=== PATIENT | female | born 1965 | race Caucasian/White ===

== ENCOUNTER 2018-12-17 09:19 | Emergency (ER) | payer OTHER, SELFPAY ==
[2018-12-17 10:45] LABS: Urine Blood TRACE (NEG); Urine Glucose NEGATIVE (NEG); Urine Protein NEGATIVE (NEG)
[2018-12-17 11:15] LABS: Absolute Lymphocytes (CBC) 1.7 K/uL (0.7-4.9); Absolute Monocytes 0.5 K/uL (0.1-1.3); Absolute Neutrophil 3.2 K/uL (1.8-8.0); Basophils % 0.8 % (0-1.3); Eosinophils % 0.6 % (0-4.4); Hematocrit 38.3 % (36.0-45.0); Lymphocytes % 31.1 % (15.3-44.8); Monocytes % 9.6 % (3.3-12.3); RBC Red Blood Cell Count 4.02 M/uL (3.86-4.86)
[2018-12-17 11:37] LABS: Albumin 4.2 g/dL (3.4-5.0); Bilirubin Direct 0.1 mg/dL (0-0.2); Bilirubin Total 0.4 mg/dL (0.2-1.0); Potassium 4.4 mmol/L (3.5-5.1); Protein, Total 8.5 g/dL (6.4-8.2)
[2018-12-17 11:39] LABS: Thyroid Stimulating Hormone 32.1 uIU/mL (0.360-3.740)
--- NOTE | 2018-12-17 11:55 | EDPHYS ---
Physician Documentation [facility] Name: Marilyn Last Age: 53 yrs Sex: Female : 1965 Arrival Date: 12/17/2018 Time: 09:24 Bed 23 Private MD: ED Physician Tom Rothman HPI: 12/17 11:56 This 53 yrs old Female presents to ER via Ambulatory with complaints of kb Abdominal Pain. 11:59 The patient or guardian reports weight gain, that was potentially precipitated by out kb of medication. Onset: The symptoms/episode began/occurred 3 week(s) ago. Associated signs and symptoms: Pertinent positives: weight gain, abd bloating. Current symptoms: In the emergency department the patient's symptoms are unchanged from the initial presentation. The patient has not experienced similar symptoms in the past. The patient has not recently seen a physician. Pt reports she is from [place] and ran out of her synthroid 3 weeks ago. States she has gained weight since and had a lot of acid reflux since then. Reports abd pain after eating for the past 3 months. . Historical: - Allergies: 09:31 PENICILLINS; ss - PMHx: 09:31 Lupus; ss 09:31 Thyroid problem; ss - Immunization history:: Adult Immunizations up to date. - Social history:: Smoking status: Patient uses tobacco products, smokes one-half pack cigarettes per day. - Ebola Screening: : Patient denies exposure to infectious person Patient denies travel to an Ebola-affected area in the 21 days before illness onset. ROS: 11:57 Constitutional: Negative for fever, chills, and weight loss, ENT: Negative for injury, kb pain, and discharge, Neck: Negative for injury, pain, and swelling, Cardiovascular: Negative for chest pain, palpitations, and edema, Respiratory: Negative for shortness of breath, cough, wheezing, and pleuritic chest pain, Back: Negative for injury and pain, MS/Extremity: Negative for injury and deformity, Skin: Negative for injury, rash, and discoloration, Neuro: Negative for headache, weakness, numbness, tingling, and seizure. 11:57 Abdomen/GI: Positive for abdominal pain, abd bloating., Negative for nausea, vomiting, and diarrhea, constipation, abdominal cramps, anorexia. 11:57 Endocrine: Positive for weight gain. Exam: 11:58 Constitutional: This is a well developed, well nourished patient who is awake, alert, kb and in no acute distress. Head/Face: Normocephalic, atraumatic. Neck: Trachea midline, no thyromegaly or masses palpated, and no cervical lymphadenopathy. Supple, full range of motion without nuchal rigidity, or vertebral point tenderness. No Meningismus. Chest/axilla: Normal chest wall appearance and motion. Nontender with no deformity. No lesions are appreciated. Cardiovascular: Regular rate and rhythm with a normal S1 and S2. No gallops, murmurs, or rubs. Normal PMI, no JVD. No pulse deficits. Respiratory: Lungs have equal breath sounds bilaterally, clear to auscultation and percussion. No rales, rhonchi or wheezes noted. No increased work of breathing, no retractions or nasal flaring. Abdomen/GI: Soft, non-tender, with normal bowel sounds. No distension or tympany. No guarding or rebound. No evidence of tenderness throughout. Back: No spinal tenderness. No costovertebral tenderness. Full range of motion. Skin: Warm, dry with normal turgor. Normal color with no rashes, no lesions, and no evidence of cellulitis. MS/ Extremity: Pulses equal, no cyanosis. Neurovascular intact. Full, normal range of motion. Neuro: Awake and alert, GCS 15, oriented to person, place, time, and situation. Cranial nerves II-XII grossly intact. Motor strength 5/5 in all extremities. Sensory grossly intact. Cerebellar exam normal. Normal gait. Vital Signs: 09:31 BP 145 / 100; Pulse 65; Resp 16; Temp 97.8(TE); Pulse Ox 100% on R/A; Weight 86.18 kg; ss Height 5 ft. 7 in. (170.18 cm); 09:31 Body Mass Index 29.76 (86.18 kg, 170.18 cm) ss MDM: 10:03 Patient medically screened. kb 11:52 Data reviewed: vital signs, nurses notes. Data interpreted: Pulse oximetry: on room air kb is 100 %. Interpretation: normal. 14:45 ED course: Charge nurse called pt back to inform her of thyroid levels and need for kb synthroid. Pt reported that she is supposed to take 150mcg daily. Charge nurse to call in prescription for Synthroid 150mcg PO daily #30 with no refills to [facility] pharmacy in [place]. Pt is to follow up with PCP when she gets back to [place] in 3 weeks. . 12/17 10:24 Order name: Urine Dipstick--Ancillary (enter results); Complete Time: 10:46 bd 12/17 10:24 Order name: Urine --Ancillary (enter results); Complete Time: 10:46 bd 12/17 10:30 Order name: Basic Metabolic Panel; Complete Time: 11:56 kb 12/17 10:30 Order name: CBC with Diff; Complete Time: 11:22 kb 12/17 10:30 Order name: Hepatic Function; Complete Time: 11:56 kb 12/17 10:30 Order name: Lipase; Complete Time: 11:56 kb 12/17 10:30 Order name: IV Saline Lock; Complete Time: 11:05 kb 12/17 10:30 Order name: Labs collected and sent; Complete Time: 11:05 kb 12/17 10:30 Order name: TSH; Complete Time: 11:56 kb 12/17 11:42 Order name: T4 Free; Complete Time: 11:56 EDMS Administered Medications: No medications were administered Disposition: 15:06 Co-signature as Attending Physician, Tom Rothman MD I agree with the assessment and diony plan of care. Disposition: 12/17/18 11:53 Patient left the facility after being seen by provider. Preliminary diagnosis are Generalized abdominal pain, Encounter for issue of repeat prescription. - Patient left due to unknown. - Condition is Stable. Signatures: Dispatcher [employer] [facility] Shanice Clements, JANELLE-C CARGO BRACER-Pia Rosenbaum, RN RN aj1 Tom Rothman MD MD cha Smirch, Shelby, RN RN ss Corrections: (The following items were deleted from the chart) 11:42 11:27 Abdomen Limited+US.RAD.BRZ ordered. [facility] 11:53 11:53 12/17/2018 11:53 Patient left the facility after being seen by provider. kb Preliminary diagnosis is Generalized abdominal pain. Reason stated they are leaving due to unknown. Condition is Stable. kb 11:54 11:53 12/17/2018 11:53 Patient left the facility after being seen by provider. aj1 Preliminary diagnosis is Generalized abdominal pain; Encounter for issue of repeat prescription. Reason stated they are leaving due to unknown. Condition is Stable. kb
--- NOTE | 2018-12-17 11:55 | ER ---
Nurse's Notes [facility] Name: Marilyn Last Age: 53 yrs Sex: Female : 1965 Arrival Date: 12/17/2018 Time: 09:24 Bed 23 Private MD: Diagnosis: Generalized abdominal pain;Encounter for issue of repeat prescription Presentation: 12/17 09:29 Presenting complaint: Patient states: "I think it's my thyroid, but I've gained a lot ss of weight recently, and I feel something moving in my stomach, acid reflux and I've been out of my thyroid medicine, because I've been out for a while." Pt reports + UPT 2 days ago. Transition of care: patient was not received from another setting of care. Onset of symptoms is unknown. Risk Assessment: Do you want to hurt yourself or someone else? Patient reports no desire to harm self or others. Initial Sepsis Screen: Does the patient meet any 2 criteria? No. Patient's initial sepsis screen is negative. Does the patient have a suspected source of infection? No. Patient's initial sepsis screen is negative. Care prior to arrival: None. 09:29 Method Of Arrival: Ambulatory ss 09:29 Acuity: LA 3 ss Historical: - Allergies: 09:31 PENICILLINS; ss - PMHx: 09:31 Lupus; ss 09:31 Thyroid problem; ss - Immunization history:: Adult Immunizations up to date. - Social history:: Smoking status: Patient uses tobacco products, smokes one-half pack cigarettes per day. - Ebola Screening: : Patient denies exposure to infectious person Patient denies travel to an Ebola-affected area in the 21 days before illness onset. Screenin:10 Abuse screen: Denies threats or abuse. Denies injuries from another. Nutritional aj1 screening: No deficits noted. Tuberculosis screening: No symptoms or risk factors identified. 11:42 Fall Risk None identified. aj1 Assessment: 10:10 General: Appears in no apparent distress. comfortable, Behavior is calm, cooperative, aj1 appropriate for age. Pain: Denies pain. Neuro: Level of Consciousness is awake, alert, obeys commands, Oriented to person, place, time, situation, Speech is normal, Facial symmetry appears normal. Cardiovascular: Patient's skin is warm and dry. Respiratory: Airway is patent Respiratory effort is even, unlabored, Respiratory pattern is regular, symmetrical. GI: Abdomen is round non-distended, Bowel sounds present X 4 quads. Abd is soft and non tender X 4 quads. Reports bloating, indigestion, weight gain. : No signs and/or symptoms were reported regarding the genitourinary system. EENT: No signs and/or symptoms were reported regarding the EENT system. Derm: No signs and/or symptoms reported regarding the dermatologic system. Skin is pink, warm \\T\\ dry. normal. Musculoskeletal: No signs and/or symptoms reported regarding the musculoskeletal system. Circulation, motion, and sensation intact. 11:40 Reassessment: Patient asked for a glass of water and when I returned to her room she aj1 was walking out. States "I took out my IV I'm leaving" Bandaid noted to IV site. Patient was asked why she was leaving and patient just stated "Something happened and I have to go" before walking out of the ER. Vital Signs: 09:31 BP 145 / 100; Pulse 65; Resp 16; Temp 97.8(TE); Pulse Ox 100% on R/A; Weight 86.18 kg; ss Height 5 ft. 7 in. (170.18 cm); 09:31 Body Mass Index 29.76 (86.18 kg, 170.18 cm) ED Course: 09:24 Patient arrived in ED. as 09:30 Triage completed. ss 09:31 Arm band placed on left wrist. ss 10:03 Shanice Clements [facility]C [facility] kb 10:03 Tom Rothman MD is Attending Physician. kb 10:10 Pia Renteria RN is Primary Nurse. aj1 10:10 Patient has correct armband on for positive identification. Bed in low position. Call aj1 light in reach. Side rails up X 1. 10:10 No provider procedures requiring assistance completed. aj1 11:06 Initial lab(s) drawn, by me, sent to lab. Inserted saline lock: 20 gauge in right em1 antecubital area, using aseptic technique. Blood collected. 11:42 IV discontinued, by patient. aj1 Administered Medications: No medications were administered Outcome: 11:42 Eloped from patient exam room, after seeing physician ajDuc 11:42 Condition: good 11:54 Patient left the ED. aj1 12:16 Instructed on attempted to call pt on cell phone to get her pharmacy info, pt did not iw answer and does not have a voice mail box set up yet 14:54 Instructed on called in Synthroid 150 mcg Daily, Qty30, no refills, called in to [facility] Signatures: Shanice Clements, FORMING ROLL OPERATOR-C FORMING ROLL OPERATOR-Ckb Pia Renteria, RN RN shakir1 Mariah Dahl Irene, RN RN iw Martinez, Eric Teri Yates RN RN ss
== END 2018-12-17 11:54 | disposition left against medical advice (07) ==
LOC: ER 09:19
DX: R10.9 Unspecified abdominal pain (principal); M32.9 Systemic lupus erythematosus, unspecified; E07.9 Disorder of thyroid, unspecified; Z88.0 Allergy status to penicillin; F17.210 Nicotine dependence, cigarettes, uncomplicated; Z53.29 Procedure and treatment not carried out because of patient's decision for other reasons
CPT/HCPCS: 36415; 80048; 80076; 81003; 81025; 83690; 84439; 84443; 85025; 99283

== ENCOUNTER 2019-01-01 22:35 | Emergency (ER) | payer SELFPAY ==
[2019-01-01 23:21] LABS: Urine Blood TRACE (NEG); Urine Glucose NEGATIVE (NEG); Urine Protein NEGATIVE (NEG); Urine Specific Gravity >1.030 (1.005-1.030)
[2019-01-02 00:02] LABS: Urine Bacteria >50 /HPF (<20); Urine Culture Reflex Order NOT NEEDED; Urine RBC <5 /HPF (NONE SEEN)
[2019-01-02 00:21] LABS: Absolute Lymphocytes (CBC) 2.7 K/uL (0.7-4.9); Absolute Monocytes 0.9 K/uL (0.1-1.3); Absolute Neutrophil 3.8 K/uL (1.8-8.0); Basophils % 0.9 % (0-1.3); Eosinophils % 1.3 % (0-4.4); Hematocrit 33.6 % (36.0-45.0); Lymphocytes % 36.1 % (15.3-44.8); MPV 9.1 fL (7.6-11.3); Monocytes % 11.8 % (3.3-12.3)
[2019-01-02 00:31] LABS: ALT/SGPT 18 U/L (12-78); AST/SGOT 17 U/L (15-37); Albumin 3.6 g/dL (3.4-5.0); Alkaline Phosphatase 57 U/L (45-117); BUN Blood Urea Nitrogen 13 mg/dL (7-18); Bicarbonate 27 mmol/L (21-32); Bilirubin Direct < 0.1 mg/dL (0-0.2); Bilirubin Total 0.3 mg/dL (0.2-1.0); Glucose Level 132 mg/dL (74-106); Lipase 200 U/L (73-393); Potassium 3.6 mmol/L (3.5-5.1); Protein, Total 7.4 g/dL (6.4-8.2); Sodium Level 142 mmol/L (136-145)
--- NOTE | 2019-01-02 02:17 | EDPHYS ---
Physician Documentation [facility] Name: Marilyn Last Age: 53 yrs Sex: Female : 1965 Arrival Date: 01/01/2019 Time: 22:37 Bed 24 Private MD: ED Physician Mihir Watts HPI: 01/02 01:26 This 53 yrs old Female presents to ER via Ambulatory with complaints of tw4 Abdominal Swelling. 01:26 The patient presents with abdominal pain that is diffuse. Onset: The symptoms/episode tw4 began/occurred today. The symptoms do not radiate. Associated signs and symptoms: none. The symptoms are described as dull. Modifying factors: The symptoms are alleviated by nothing, the symptoms are aggravated by nothing. The patient has not experienced similar symptoms in the past. 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 - Social history:: Smoking status: Patient uses tobacco products, smokes one-half pack cigarettes per day. - Ebola Screening: : No symptoms or risks identified at this time. ROS: 01/02 01:26 Constitutional: Negative for fever, chills, and weight loss, Cardiovascular: Negative tw4 for chest pain, palpitations, and edema, Respiratory: Negative for shortness of breath, cough, wheezing, and pleuritic chest pain, MS/Extremity: Negative for injury and deformity, Skin: Negative for injury, rash, and discoloration, Neuro: Negative for headache, weakness, numbness, tingling, and seizure. Abdomen/GI: Positive for abdominal pain, abdominal distension, Negative for nausea and vomiting, nausea, vomiting, and diarrhea, vomiting, diarrhea, constipation. Exam: 01:26 Constitutional: This is a well developed, well nourished patient who is awake, alert, tw4 and in no acute distress. Head/Face: Normocephalic, atraumatic. Chest/axilla: Normal chest wall appearance and motion. Nontender with no deformity. No lesions are appreciated. Cardiovascular: Regular rate and rhythm with a normal S1 and S2. No gallops, murmurs, or rubs. Normal PMI, no JVD. No pulse deficits. Respiratory: Lungs have equal breath sounds bilaterally, clear to auscultation and percussion. No rales, rhonchi or wheezes noted. No increased work of breathing, no retractions or nasal flaring. 01:26 Back: No spinal tenderness. No costovertebral tenderness. Full range of motion. Skin: Warm, dry with normal turgor. Normal color with no rashes, no lesions, and no evidence of cellulitis. MS/ Extremity: Pulses equal, no cyanosis. Neurovascular intact. Full, normal range of motion. Neuro: Awake and alert, GCS 15, oriented to person, place, time, and situation. Cranial nerves II-XII grossly intact. Motor strength 5/5 in all extremities. Sensory grossly intact. Cerebellar exam normal. Normal gait. 01:26 Abdomen/GI: Inspection: distension, that is mild, Bowel sounds: diminished, Palpation: mild abdominal tenderness, in the epigastric area. Vital Signs: 01/01 22:43 BP 119 / 90; Pulse 74; Resp 20; Temp 98(TE); Pulse Ox 98% on R/A; Weight 90.72 kg; tl2 Height 5 ft. 7 in. (170.18 cm); Pain 6/10; 01/02 00:02 BP 102 / 65; Pulse 85; Resp 18 S; Pulse Ox 98% on R/A; ca1 00:47 BP 97 / 72; Pulse 72; Resp 18 S; Pulse Ox 99% on R/A; ca1 02:20 BP 125 / 92; Pulse 68; Resp 17; Pulse Ox 97% ; rv 01/01 22:43 Body Mass Index 31.32 (90.72 kg, 170.18 cm) tl2 MDM: 01/01 23:41 Patient medically screened. tw4 01/02 01:28 Differential diagnosis: appendicitis, cholecystitis, diverticulitis, gastroesophageal tw4 reflux disease, GI Bleed, Hepatitis, non-specific abd pain, pancreatitis, Peptic Ulcer Disease, Perf. Duodenal Ulcer, Perf. Gastric Ulcer. Data reviewed: vital signs, nurses notes. Data interpreted: Pulse oximetry: Interpretation: normal. Counseling: I had a detailed discussion with the patient and/or guardian regarding: the historical points, exam findings, and any diagnostic results supporting the discharge/admit diagnosis, lab results. 01/01 23:10 Order name: Urine Dipstick--Ancillary (enter results) ca 01/01 23:10 Order name: Urine --Ancillary (enter results); Complete Time: 00:35 ca 01/02 00:35 Interpretation: Within normal limits: USPGR >1.030. [facility] 01/01 23:30 Order name: Urine Culture ca1 01/01 23:30 Order name: Urine Microscopic Only ca1 01/01 23:42 Order name: Basic Metabolic Panel; Complete Time: 00:35 [facility] 01/02 00:35 Interpretation: Normal except: CL 108; GLUC 132; GFR 62. [facility] 01/01 23:42 Order name: CBC with Diff; Complete Time: 02:13 [facility] 01/02 02:13 Interpretation: Normal except: RBC 3.50; HGB 11.7; HCT 33.6. [facility] 01/01 23:42 Order name: Creatinine for Radiology; Complete Time: 02:14 [facility] 01/02 02:14 Interpretation: Within normal limits. [facility] 01/01 23:42 Order name: Hepatic Function; Complete Time: 02:13 [facility] 01/02 02:13 Interpretation: Normal except: GLOB 3.8; A/G 0.9. [facility] 01/01 23:42 Order name: Lipase [facility] 01/01 23:42 Order name: IV Saline Lock; Complete Time: 23:59 [facility] 01/01 23:42 Order name: Labs collected and sent; Complete Time: 00:00 [facility] 01/01 23:42 Order name: Urine Dipstick-Ancillary (obtain specimen); Complete Time: 23:44 [facility] 01/02 00:35 Order name: CT Abd/Pelvis - W/Contrast [facility] Administered Medications: No medications were administered Disposition: 01/02/19 02:17 Discharged to Home. Impression: Abdominal tenderness. - Condition is Stable. - Discharge Instructions: Abdominal Pain, Adult, [id number]. - Prescriptions for Bentyl 20 mg Oral Tablet - take 1 tablet by ORAL route every 6 hours As needed; 20 tablet. - Medication Reconciliation Form, Thank You Letter, Antibiotic Education, Prescription Opioid Use form. - Follow up: Private Physician; When: Upon discharge from the Emergency Department; Reason: If symptoms return, Recheck today's complaints, Continuance of care. - Problem is new. - Symptoms have improved. Signatures: Dispatcher [employer] EDAudelia Burgos RN RN tl2 Mihir Watts MD MD tw4 Mau Barclay RN RN rv Corrections: (The following items were deleted from the chart) 02:29 02:17 01/02/2019 02:17 Discharged to Home. Impression: Abdominal tenderness. Condition rv is Stable. Forms are Medication Reconciliation Form, Thank You Letter, Antibiotic Education, Prescription Opioid Use. Follow up: Private Physician; When: Upon discharge from the Emergency Department; Reason: If symptoms return, Recheck today's complaints, Continuance of care. Problem is new. Symptoms have improved. tw4
--- NOTE | 2019-01-02 02:17 | ER ---
Nurse's Notes [facility] Name: Marilyn Last Age: 53 yrs Sex: Female : 1965 Arrival Date: 01/01/2019 Time: 22:37 Bed 24 Private MD: Diagnosis: Abdominal tenderness Presentation: 01/01 22:41 Presenting complaint: Patient states: abdominal pain and swelling over the last month, tl2 pt reports gaining 50 pounds in the last 6 weeks. Reports nausea. Transition of care: patient was not received from another setting of care. Onset of symptoms was November 2017. Risk Assessment: Do you want to hurt yourself or someone else? Patient reports no desire to harm self or others. Initial Sepsis Screen: Does the patient meet any 2 criteria? No. Patient's initial sepsis screen is negative. Does the patient have a suspected source of infection? No. Patient's initial sepsis screen is negative. Care prior to arrival: None. 22:41 Method Of Arrival: Ambulatory tl2 22:41 Acuity: LA 3 tl2 Triage Assessment: 22:43 General: Appears in no apparent distress. uncomfortable, Behavior is calm, cooperative, tl2 appropriate for age. Pain: Complains of pain in abdomen. GI: Abdomen is round distended. 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 - Social history:: Smoking status: Patient uses tobacco products, smokes one-half pack cigarettes per day. - Ebola Screening: : No symptoms or risks identified at this time. Screenin:50 Abuse screen: Denies threats or abuse. Denies injuries from another. Nutritional ca1 screening: No deficits noted. Tuberculosis screening: No symptoms or risk factors identified. Fall Risk None identified. Assessment: 22:50 General: Appears in no apparent distress. comfortable, Behavior is calm, cooperative, ca1 appropriate for age. Pain: Complains of pain in abdomen Pain does not radiate. Pain currently is 6 out of 10 on a pain scale. Pain began 2-3 days ago. Neuro: Level of Consciousness is awake, alert, obeys commands, Oriented to person, place, time, situation. Cardiovascular: Heart tones S1 S2 present Capillary refill < 3 seconds Patient's skin is warm and dry. Respiratory: Airway is patent Respiratory effort is even, unlabored, Respiratory pattern is regular, symmetrical, Breath sounds are clear bilaterally. GI: Abdomen is round non-distended, Bowel sounds present X 4 quads. Abd is soft X 4 quads Abdomen is tender to palpation in epigastric area, suprapubic area and abdomen diffusely Reports nausea. : Urine is cloudy. EENT: No deficits noted. No signs and/or symptoms were reported regarding the EENT system. Derm: Skin is intact, is healthy with good turgor, Skin is pink, warm \T\ dry. Musculoskeletal: Circulation, motion, and sensation intact. Capillary refill < 3 seconds. 01/02 00:08 Reassessment: Patient appears in no apparent distress at this time. Patient and/or ca1 family updated on plan of care and expected duration. Pain level reassessed. Patient is alert, oriented x 3, equal unlabored respirations, skin warm/dry/pink. 00:47 Reassessment: Patient appears in no apparent distress at this time. Patient is alert, ca1 oriented x 3, equal unlabored respirations, skin warm/dry/pink. Vital Signs: 01/01 22:43 BP 119 / 90; Pulse 74; Resp 20; Temp 98(TE); Pulse Ox 98% on R/A; Weight 90.72 kg; tl2 Height 5 ft. 7 in. (170.18 cm); Pain 6/10; 01/02 00:02 BP 102 / 65; Pulse 85; Resp 18 S; Pulse Ox 98% on R/A; ca1 00:47 BP 97 / 72; Pulse 72; Resp 18 S; Pulse Ox 99% on R/A; ca1 02:20 BP 125 / 92; Pulse 68; Resp 17; Pulse Ox 97% ; rv 01/01 22:43 Body Mass Index 31.32 (90.72 kg, 170.18 cm) tl2 ED Course: 01/01 22:37 Patient arrived in ED. tl2 22:42 Triage completed. tl2 22:43 Arm band placed on right wrist. tl2 22:50 Patient has correct armband on for positive identification. Placed in gown. Bed in low ca1 position. Call light in reach. Side rails up X 1. Pulse ox on. NIBP on. Warm blanket given. 22:51 Amber Ernandez, RN is Primary Nurse. ca1 23:41 Mihir Watts MD is Attending Physician. tw4 01/02 00:01 Inserted saline lock: 20 gauge in right forearm, using aseptic technique. ,using ca1 aseptic technique. by AMINA León Blood collected. 01:42 CT Abd/Pelvis - W/Contrast In Process Unspecified. EDMS 02:29 No provider procedures requiring assistance completed. IV discontinued, intact, rv bleeding controlled, No redness/swelling at site. Pressure dressing applied. Administered Medications: No medications were administered Outcome: 02:17 Discharge ordered by . tw4 02:29 Discharged to home ambulatory. rv 02:29 Condition: good 02:29 Discharge instructions given to patient, Instructed on discharge instructions, follow up and referral plans. medication usage, Demonstrated understanding of instructions, follow-up care, medications, Prescriptions given X 1. 02:29 Patient left the ED. rv Signatures: Dispatcher [employer] EDMD Audelia Andrade RN RN tl2 Mihir Watts MD MD tw4 Mau Barclay RN RN rv Amber Ernandez, AMINA RN ca1
--- NOTE | 2019-01-02 12:35 | RAD REPORT ---
EXAM DESCRIPTION: CT - Abdomen Pelvis W Contrast - 01/02/2019 2:06 am CLINICAL HISTORY: The patient is 53 years old and is Female; ABD PAIN TECHNIQUE: Axial computed tomography images of the abdomen and pelvis with intravenous contrast. S agittal and coronal reformatted images were created and reviewed. This CT exam was performed using one or more of the following dose reduction techniques: automated exposure control, adjustment of t he mA and/or kV according to patient size, and/or use of iterative reconstruction technique. COMPARISON: None. FINDINGS: LUNG BASES: Unremarkable. No mass. No consolidation. ABDOMEN: LIVER: Unremarkable. No mass. GALLBLADDER AND BILE DUCTS: Contracted gallbladder No calcified stones. No ductal dilation. PANCREAS: Unremarkable. No mass. No ductal dilation. SPLEEN: Unremarkable. No splenomegaly. ADRENALS: Unremarkable. No mass. KIDNEYS AND URETERS: Subcentimeter right renal cyst. No hydronephrosis. STOMACH AND BOWEL: Unremarkable. No obstruction. No mucosal thickening. PELVIS: APPENDIX: The appendix is seen and is within normal limits. BLADDER: Unremarkable. No mass. REPRODUCTIVE: Calcification of the left uterus. Additionally, calcification in the right adnexa. ABDOMEN and PELVIS: INTRAPERITONEAL SPACE: Unremarkable. No free air. No significant fluid collection. BONES/JOINTS: Diffuse osteopenia is noted. No acute fracture. No dislocation. SOFT TISSUES: Small fat-containing omental hernia. VASCULATURE: Unremarkable. No abdominal aortic aneurysm. LYMPH NODES: Unremarkable. No enlarged lymph nodes. IMPRESSION: 1. No acute abdominal or pelvic abnormality. 2. Subcentimeter right renal cyst 3. Calcification of the left uterus and right adnexa. Electronically signed by: Jc Proctor DO 01/02/2019 1:57 AM CDT Due to temporary technical issues with the PACS/Fluency reporting system, reports are being signed by the in house radiologist as a courtesy to ensure prompt reporting. The interpreting radiologist is f ully responsible for the content of the report.
== END 2019-01-02 02:29 | disposition home or self-care (01) ==
LOC: ER 22:35
DX: R10.816 Epigastric abdominal tenderness (principal); E07.9 Disorder of thyroid, unspecified; F17.210 Nicotine dependence, cigarettes, uncomplicated; Z88.0 Allergy status to penicillin
CPT/HCPCS: 36415; 74177; 80048; 80076; 81003; 81015; 81025; 83690; 85025; 87086; 87088; 99284; Q9967